=== PATIENT | female | born 1950 | race Two or more races ===

== ENCOUNTER 2017-12-28 10:46 | Outpatient (CLI) | payer OTHER ==
[~2017-12-28 10:46] MED LIST: MACROBID 100 M100 MG PO; ULTRACET PO
== END 2017-12-28 10:56 | disposition home or self-care (01) ==
LOC: SONOGRAMA 10:46
DX: E04.1 Nontoxic single thyroid nodule (principal)

== ENCOUNTER → 2020-10-01 10:03 | Outpatient (CLI) | payer OTHER | END | disposition home or self-care (01) | LOC: EDBD 10:03 → LAB 10:03 | PROVIDERS: ATTEND Urology | DX: N30.00 Acute cystitis without hematuria (principal); B96.29 Other Escherichia coli [E. coli] as the cause of diseases classified elsewhere ==

== ENCOUNTER 2020-10-05 07:41 | Outpatient (CLI) | payer OTHER | END 2020-10-05 16:04 | disposition home or self-care (01) | LOC: TOM 07:41 | PROVIDERS: ATTEND Urology | DX: J98.4 Other disorders of lung (principal); N39.0 Urinary tract infection, site not specified ==